=== PATIENT | female | born 1985 | race Caucasian/White ===

== ENCOUNTER 2016-11-16 02:31 | Inpatient (IN) | payer OTHER ==
[2016-11-16] MEDS ORDERED: OXYTOCIN/RINGERS LACTATE 1,000 ML IV PRN (04:10)
[2016-11-16] MEDS ORDERED: TERBUTALINE SULFATE 1 MG/ML VIAL IV PRN (04:10)
[2016-11-16] MEDS ORDERED: EPSOM SALT 454 GM TP PRN (04:10)
[2016-11-16] MEDS ORDERED: AMPICILLIN SODIUM 2 GM in NS 100 ML IV ONE ×2 (04:10→08:30)
[2016-11-16] MEDS ORDERED: LIDOCAINE 1% 30 ML SDV SC PRN (04:10)
[2016-11-16] MEDS ORDERED: MINERAL OIL 60 ML OIL TP PRN (04:10)
[2016-11-16 04:33] LABS: % IMMATURE GRANULYOCYTES 0.4 % (0.0-1.1); ABSOLUTE IMMATURE GRANULOCYTES 0.03 10^3/uL (0.00-0.10); ADD DIFF? NO; ADD MORPH? NO; ADD SCAN? NO; ATYPICAL LYMPHOCYTE FLAG 0 (0-99); FRAGMENT RBC FLAG 0 (0-99); HEMATOCRIT 37.8 % (38.0-47.0); HEMOGLOBIN 13.3 g/dL (12.6-16.3); LEFT SHIFT FLG 0 (0-99); LIPEMIA HEMOLYSIS FLAG 90 (0-99); MEAN CELL HEMOGLOBIN 30.6 pg (27.9-34.1); MEAN CELL HEMOGLOBIN CONCENTR. 35.2 g/dL (32.4-36.7); MEAN CELL VOLUME 86.9 fL (81.5-99.8); MEAN PLATELET VOLUME 12.6 fL (8.7-11.7); PLATELET CLUMPS FLAG 10 (0-99); PLATELET COUNT 145 10^3/uL (150-400); RED BLOOD CELL COUNT 4.35 10^6/uL (4.18-5.33); RED CELL DISTRIBUTION WIDTH 12.8 % (11.5-15.2)
[2016-11-16] MEDS ORDERED: AMMONIA AROMATIC 1 EACH AMP IH ONE (07:26)
[2016-11-16] MEDS ORDERED: LIDOCAINE 1% 30 ML SDV ONE (07:26)
[2016-11-16] MEDS ORDERED: TERBUTALINE SULFATE 1 MG/ML VIAL ONE (07:26)
[2016-11-16] MEDS ORDERED: OXYTOCIN 10 UNIT/ML VIAL ONE (07:27)
[2016-11-16] MEDS ORDERED: MISOPROSTOL 200 MCG TAB ONE (07:27)
[2016-11-16] MEDS ORDERED: DIAZEPAM 10 MG/2 ML SYR IVP PRN (08:14)
[2016-11-16] MEDS ORDERED: PHENYLEPHRINE HCL 100 MCG/ML SYR ONE (09:21)
[2016-11-16] MEDS ORDERED: fentaNYL 2MCG/ML/BUP 0.1% RTU 100 ML BAG EP ONE (09:21)
[2016-11-16] MEDS ORDERED: BETAMETHASONE IM SYRINGE IM ONE (09:30)
[2016-11-16] MEDS: LR 1,000 ML IV PRN ×2 (09:30→12:42)
[2016-11-16] MEDS: AMPICILLIN SODIUM 1 GM in NS 100 ML IV SCH ×2 (12:39→16:52)
[2016-11-16] MEDS ORDERED: LR 500 ML IV SCH (13:30)
[2016-11-16] MEDS ORDERED: LR 500 ML IV PRN (13:51)
[2016-11-16] MEDS ORDERED: OXYTOCIN/RINGERS LACTATE 500 ML IV SCH (14:00)
--- NOTE | 2016-11-16 14:45 | GHP ---
[f rep st] PREOP HISTORY AND PHYSICAL DATE OF ADMISSION: 11/16/2016 SERVICE: Obstetric service HISTORY: Upon admission, the patient is a 31-year-old G1, P0, at 35 weeks and 5 days, with an estima flori due date of 12/16/2016, who presents after spontaneous rupture of membranes at approximately midn ight with clear fluid. The patient presented to labor and delivery a couple hours later due to her p reterm status and began makeda approximately 3:30. The patient's contractions increased in inte nsity approximately every 3-7 minutes apart. The patient's initial exam upon presentation showed the cervix was closed, thick, and high. There was clear fluid noted on exam. The patient was using the Jacuzzi tub for early labor comfort but requested an epidural when she was able to get that. The pa tient was feeling good movement and no bleeding. CARE: The patient has been with [facility] since 7 weeks' gestation. The patient has essentially been uncomplicated through the . She has had occasional joint problems wit h right hip pain for which she saw a chiropractor, as well as rib tenderness on the left. In late , the patient was seen on labor and delivery due to right back and flank pain at which time she had a renal ultrasound that showed moderate bilateral hydronephrosis. The patient was given IV anti biotics followed by oral antibiotics. LABS: Maternal blood type O positive with negative antibody screen. RPR nonreactive. Rube lla nonimmune. Hepatitis B surface antigen negative. HIV negative. TSH was 3. Urinalysis and cult ure were negative. Pap smear normal. Gonorrhea and chlamydia negative. Verified testing was negati ve with MSAFP negative. 1-hour Glucola was normal with hematocrits of 36% to 37%. GBS testing has n ot been performed yet in the . PAST MEDICAL HISTORY: Patient with an abnormal Pap smear showing positive HPV in August 2015. His tory of possible irritable bowel syndrome with no formal evaluation. PAST SURGICAL HISTORY: Negative. ALLERGIES: No known drug allergies. CURRENT MEDICATIONS: vitamins. SOCIAL HISTORY: The patient is , lives with her , Dm. 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 The patient is a nonsmoker. No a lcohol or drug use. PHYSICAL EXAMINATION: GENERAL: The patient is a well-developed, well-nourished white female, in mod erate physical distress with contractions. VITAL SIGNS: The patient is afebrile with normal vital s igns. Please see nursing documentation for full details. heart tone monitoring shows category 1 tracing with a baseline in the 120s with good variability and accelerations. No decelerations not ed. Contractions every 3-4 minutes at this time. PELVIC: The patient had a cervical exam at approx imately 7:30 and was 2 cm dilated, 90% effaced, at +1 station. With that progress of the cervix, the patient did receive an epidural for labor comfort. The patient has had a subsequent exam after the epidural brought her comfort, and she was 3 cm dilated at that point. The fluid is continuing to be clear. EXTREMITIES: Nontender and no edema. ASSESSMENT: Intrauterine at 35 weeks and 5 days. Spontaneous rupture of membranes with un known group B strep status. The patient has now received her second dose of group B strep prophylaxi s with ampicillin. An ultrasound was performed this morning with vertex presentation confirmed. Rub jeanette nonimmune. PLAN: We will add Pitocin if the patient needs it for continuing regular contractions. Expect vagin al delivery. nurse practitioner has been notified. The patient also received a dose of bet amethasone due to early status. /[id number]/MODL
[2016-11-16] MEDS: IBUPROFEN 600 MG TAB PO PRN (19:42)
[2016-11-16] MEDS ORDERED: ACETAMINOPHEN 325 MG TAB PO PRN (19:45)
[2016-11-16] MEDS ORDERED: HYDROCODONE/APAP 5/325 TAB PO PRN (19:45)
[2016-11-16] MEDS ORDERED: MEASLES,MUMPS&RUBELLA VACC/PF 0.5 ML VIAL SC ONE (19:45)
--- NOTE | 2016-11-16 19:49 | OBPROC ---
- Labor and Delivery Onset of Contractions Date: 11/16/16 Onset of Contractions Time: 05:00 Onset of Contractions Type: Spontaneous Rupture of Membranes Date: 11/15/16 Rupture of Membranes Time: 23:56 Rupture of Membranes Type: Spontaneous Amniotic Fluid Color: Clear Dilation Complete Time: 18:30 Delivery Type: Spontaneous Placenta Delivery Date: 11/16/16 Placenta Delivery Time: 19:08 Episiotomy/Laceration: 2nd Degree, Midline, Perineal Repair: 3-0, Vicryl EBL: 500 Complications: None - Medications Labor Augmentation/Induction Meds Used: Pitocin Labor Augmentation/Induction Indication: Other (Specify) (protracted ctxns after KAN) Anesthesia: Epidural - [place] Info Infant A Delivery Date: 11/16/16 Delivery Time: 18:57 Sex of Infant: Male Score (1 Min): 8 Score (5 Min): 9
[2016-11-17] MEDS: IBUPROFEN 600 MG TAB PO PRN ×4 (02:40→22:34)
[2016-11-17] MEDS: AMPICILLIN SODIUM 1 GM in NS 100 ML IV SCH ×3 (03:08→17:57)
[2016-11-17] MEDS: DOCUSATE SODIUM 100 MG CAP PO PRN ×2 (10:07→22:34)
--- NOTE | 2016-11-17 11:41 | OBPROG ---
OBG Progress Note Assessment/Plan: Assessment: 31 y/o PPD #1 s/p after PPROM @ 356/7 weeks. Plan: support, Clarkson and Ibuprofen PRN pain. Routine PPC. 11/17/16 11:41 Subjective: Pt is doing well this am. She has pain in perineum and abdominal muscles partially controlled with Ibuprofen but hasn't tried Clarkson yet. She is ambulating, voiding and having mod lochia. Baby is doing very well latching and stable on room air. Objective: 11/17/16 06:00 Patient ABO/Rh O POSITIVE 11/16/16 04:05 Group B Strep DNA NEGATIVE (NEGATIVE) 11/16/16 03:45 Temp Pulse Resp BP Pulse Ox 36.8 C 63 18 120/75 96 11/17/16 08:30 11/17/16 08:30 11/17/16 08:30 11/17/16 08:30 11/17/16 08:30 Uterine Position/Fundal Height: Umbilicus -2 Uterine Tone: Firm - Physical Exam General Appearance: WD/WN, alert, no apparent distress Neck: non-tender, full range of motion, supple, normal inspection Respiratory: chest non-tender, lungs clear, normal breath sounds Extremities: swelling (1+), Rodriguez's sign (neg) ICD10 Worksheet Patient Problems: Problems Problem Status Diagnosed delivery Acute (spontaneous vaginal delivery) Acute
[2016-11-17] MEDS ORDERED: IRON POLYSAC/IRON HEME 28 MG TAB PO SCH (12:00)
[2016-11-17] MEDS ORDERED: MEASLES,MUMPS&RUBELLA VACC/PF 0.5 ML VIAL SC ONE (14:30)
[2016-11-18] MEDS: IBUPROFEN 600 MG TAB PO PRN ×2 (05:19→11:36)
--- NOTE | 2016-11-18 07:23 | OBPROG ---
OBG Progress Note Assessment/Plan: Assessment: s/p PPD #2 - pt is stable Plan: Continue routine pp care Plan for d/c home later today No Rx given Cont PNV Pelvic rest RTC in 6 weeks for pp visit 11/18/16 07:20 Subjective: Pt seen and examined. Doing well with no complaints. Some cramping, mostly sore from vaginal tear. Moderate lochia. without difficulty. Objective: 11/17/16 06:00 Patient ABO/Rh O POSITIVE 11/16/16 04:05 Group B Strep DNA NEGATIVE (NEGATIVE) 11/16/16 03:45 Temp Pulse Resp BP Pulse Ox 36.7 C 73 16 116/72 96 11/17/16 20:35 11/17/16 20:35 11/17/16 20:35 11/17/16 20:35 11/17/16 20:35 Uterine Position/Fundal Height: Umbilicus -2 Uterine Tone: Firm - Physical Exam General Appearance: WD/WN, alert, no apparent distress Respiratory: lungs clear, normal breath sounds Cardiac/Chest: regular rate, rhythm Abdomen: normal bowel sounds, non-tender, soft, flatus (+) Genitourinary: lochia (moderate) Extremities: non-tender, normal inspection Neuro/Psych: alert, normal mood/affect, oriented x 3 ICD10 Worksheet Patient Problems: Problems Problem Status Diagnosed delivery Acute (spontaneous vaginal delivery) Acute
[2016-11-18 09:06] VITALS: BP 106/67; PULSE 54; RESP 18; TEMP 97.8; O2SAT 95
[2016-11-18] MEDS: DOCUSATE SODIUM 100 MG CAP PO PRN (11:35)
[2016-11-18] MEDS ORDERED: HYDROCORTISONE 0.5% CREAM TP ONE (13:24)
== END 2016-11-18 15:39 | disposition home or self-care (01) | DRG 775 ==
LOC: FLD 02:31 → OBSVTOIN 02:31 → FOB 20:59
PROVIDERS: ADMIT Obstetrics & Gynecology; ATTEND Obstetrics & Gynecology
DX: O42.013 Preterm premature rupture of membranes, onset of labor within 24 hours of rupture, third trimester (principal); Z3A.35 35 weeks gestation of pregnancy; O70.1 Second degree perineal laceration during delivery
CPT/HCPCS: J0290; J0702; J2370; J2590; J3105

== ENCOUNTER → 2016-12-08 | Outpatient (CLI) | payer OTHER | LOC: FLAB 13:03 | PROVIDERS: ATTEND Obstetrics & Gynecology | DX: O92.5 Suppressed lactation (principal); O92.29 Other disorders of breast associated with pregnancy and the puerperium | CPT/HCPCS: G0463 ==

== ENCOUNTER → 2017-06-16 | Day surgery (SDC) | payer OTHER ==
--- NOTE | 2017-06-14 14:17 | GHP ---
HISTORY AND PHYSICAL DATE OF ADMISSION: 06/15/2017 ADMITTING DIAGNOSIS: Missed at 6 weeks and 5 days. HISTORY OF PRESENT ILLNESS: Patient is a 32-year-old, 2, para 1-0-0-1, with unknown last menstrual period, at 6 5/7 weeks who presented to the office last week to confirm dates. She presented for a new OB intake of an unplanned but welcome 06/06. Regular periods resumed in February after discontinuing a 3-month-old. She was using condoms for control, believed to have conceived 04/21/2017, with a last menstrual period end of March. Denies any vomiting, having some nausea. Patient got an ultrasound that day showing an intrauterine at 6 weeks and 5 days with no cardiac activity seen. Patient denied any bleeding, spotting or cramping. We discussed conservative management with a follow-up ultrasound in a week. Patient then presents today for followup ultrasound. Again, there is an IUP with no heart rate at 6 weeks and 5 days, with no growth from previous exam, and a resolving corpus luteal cyst on left ovary. Patient denies any cramping, known spotting or bleeding. Condolences were given. Discussed treatment options with the patient, conservative versus medical ( Cytotec) versus surgical with suction D and C. Patient desires surgery at this time, done as soon as possible. She is O positive. PAST OBSTETRIC HISTORY: In November 2016, she had a vaginal delivery at 35 weeks and 6 days secondary to PPROM, and delivered a viable male weighing 6 pounds 11 ounces. PAST GYNECOLOGIC HISTORY: Menarche at 13. Cycles are every month, every 28 days, for 5-7 days. She had a positive test 05/31/2017. Pt has a h/ o abn pap smears with +HPV, no treatment. Patient denies exposure to any other sexually transmitted diseases. PAST MEDICAL HISTORY: Irritable bowel syndrome. PAST SURGICAL HISTORY: Unremarkable. MEDICATIONS: vitamins, DHA, folic acid. ALLERGIES: No known drug allergies. SOCIAL HISTORY: Patient is . She lives with her and son. 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 Denies alcohol, tobacco, or illicit drug use. LABS: She is O positive. REVIEW OF SYSTEMS: A 10-point review of systems is negative. Pertinent positives noted in HPI. FAMILY HISTORY: Her mother has hypothyroidism. Maternal grandmother with multiple sclerosis. PHYSICAL EXAMINATION: VITAL SIGNS: On admission, vital signs are stable. Patient is afebrile. GENERAL: A well-nourished well-developed female, alert and oriented x3, in no apparent distress. CARDIOVASCULAR: Regular rate and rhythm. LUNGS: Clear to auscultation. ABDOMEN: Soft, nontender, nondistended. PELVIC: On bimanual exam, enlarged uterus to 8 week size. Normal adnexa. Nontender. EXTREMITIES: Normal to inspection without calf tenderness or edema. ASSESSMENT: Patient is a 32 year old gravida1, para1-0-0-1 at 6 5/7 weeks with a missed . PLAN: 1. We discussed the procedure, its limitations, n.p.o. status, and postop recovery. 2. She desires to start control pills as soon as possible. 3. Surgery is scheduled for 12:30 on 06/15/17. Consents are to de done at the bedside. 4. 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 Doxycycline before and after the procedure. 5. SCDs for DVT prophylaxis. /[id number]/MODL MTDD
[~2017-06-16] MED LIST: AMMONIA AROMATIC 1 EACH AMP IH ONE; DEXAMETHASONE 4 MG/ML VIAL ONE; DOXYCYCLINE HYCLATE 100 MG CAP/TAB PO ONE; HEMABATE 250 MCG/1 ML AMP IM ONE; HYDROCODONE/APAP 5/325 TAB PO PRN; KETOROLAC 30 MG/1 ML SDV ONE; METHYLERGONOVINE MAL 0.2 MG/ML INJ ONE; MIDAZOLAM 2 MG/2 ML VIAL IVP ONE; MIDAZOLAM 2 MG/2 ML VIAL ONE; MISOPROSTOL 200 MCG TAB ONE; NALOXONE HCL 0.4 MG/ML INJ IVP PRN; ONDANSETRON 4 MG/2 ML VIAL IVP ONE; ONDANSETRON 4 MG/2 ML VIAL IVP PRN; ONDANSETRON 4 MG/2 ML VIAL ONE; OXYCODONE/APAP 5/325 TAB PO PRN; OXYTOCIN 10 UNIT/ML VIAL ONE; PROPOFOL/EMULSION 500 MG/50 ML BOTTLE IV ONE; SILVER NITRATE APPLICATOR 1 APPL TP ONE; fentaNYL 100 MCG/2 ML INJ IVP PRN; fentaNYL 100 MCG/2 ML INJ ONE
--- NOTE | 2017-06-16 09:42 | PDANEPAE ---
ANE History of Present Illness D and C Missed AB ANE Past Medical History - Cardiovascular History Hx Hypertension: No Hx Arrhythmias: No Hx Chest Pain: No Hx Coronary Artery / Peripheral Vascular Disease: No Hx CHF / Valvular Disease: No - Pulmonary History Hx COPD: No Hx Asthma/Reactive Airway Disease: No Hx Recent Upper Respiratory Infection: No Hx Oxygen in Use at Home: No Hx Sleep Apnea: No - Endocrine History Hx Diabetes: No Hypothyroid: No Hyperthyroid: No ANE Review of Systems Review of Systems: - Exercise capacity METS (RN): 5 METS ANE Patient History - Allergies Allergies/Adverse Reactions: No Known Allergies Allergy (Unverified 09/04/16 11:27) - Anes Hx Anes Hx: no prior problems - Smoking Hx Smoking Status: Never smoked Marijuana use: No - Alcohol Use Alcohol Use: Occasionally - Family Anes Hx Family Anes Hx: none ANE Labs/Vital Signs - Vital Signs Height: 175.26 cm Weight: 80.286 kg ANE Physical Exam - Airway Mallampati Score: Class 1 - Pulmonary Pulmonary: no respiratory distress - Cardiovascular Cardiovascular: regular rate and rhythym - ASA Status ASA Status: II ANE Anesthesia Plan Anesthesia Plan: GA with mask Total IV Anesthesia: Yes
--- NOTE | 2017-06-16 10:55 | POSTANESTH ---
Post Anesthetic Evaluation Cardiovascular Status: Normal, Stable Respiratory Status: Normal, Stable Level of Consciousness/Mental Status: Can Participate in Eval Pain Control: Adequate, Prn Tx Ordered Nausea/Vomiting Control: Adequate, Prn Tx Ordered Complications Possibly Related to Anesthesia: None Noted
--- NOTE | 2017-06-16 19:49 | GOP ---
[f rep st] OPERATIVE REPORT DATE OF OPERATION: 06/16/2017 SURGEON: Lucia Mckeon DO ANESTHESIA: General with sedation. ANESTHESIOLOGIST: Dr. Toussaint. PREOPERATIVE DIAGNOSIS: Missed . POSTOPERATIVE DIAGNOSIS: Missed . PROCEDURE PERFORMED: Suction dilation and curettage. FINDINGS: Mobile midposition uterus with no adnexal masses. SPECIMENS: Products of conception. ESTIMATED BLOOD LOSS: 20 cc. INDICATIONS: Patient is a 32-year-old 2, para 0-1-0-1 who presented for a new OB visit on . The patient had not been trying to get as she has a 7-month-old at home. She was not completely certain of dates, but she had an intrauterine measuring 6 weeks 5 days with no cardiac activity. Ultrasound was repeated a week later which showed no additional growth a nd no cardiac activity. A diagnosis of missed was made. Management options were reviewed w ith the patient. Decision was made to proceed with a suction dilation and curettage. Risks and bene fits were reviewed with the patient and the patient was properly consented. DESCRIPTION OF PROCEDURE: Patient was taken to the operating room with intravenous fluids in place. She had been given oral doxycycline preoperatively. She was then placed on the operating room table in the dorsal supine position, where anesthesia was obtained. She was then repositioned into the do rsal lithotomy position with the Yellofin stirrups and prepped and draped in normal sterile fashion. Exam under anesthesia revealed a mobile, midposition uterus with no adnexal masses. A speculum was then placed in the patient's vagina. An Allis clamp was used to grasp the anterior lip of the cervix . The cervix was then carefully dilated to allow for the introduction of a 9 curved suction curette. A circumferential curettage was performed and a moderate amount of products of conception were note d. A sharp metal curette was then introduced, and a circumferential curettage was gently performed, and no additional products of conception were noted. Instruments were then removed from the patient' s vagina. A transvaginal ultrasound was performed. A thin endometrial stripe was noted. No retaine d products of conception were noted. A small amount of bleeding was noted on the anterior lip of the cervix, which was cauterized with silver nitrate. The patient was then returned to the dorsal supin e position, where she was easily awoken from anesthesia. Sponge count was correct. The patient was transported to recovery room in stable condition. /[id number]/MODL
== END | disposition home or self-care (01) ==
LOC: FOBOP 07:57 → UNDOADMOB 09:43 → FLD 09:43 → UNDODISOB 12:23
PROVIDERS: ATTEND Obstetrics & Gynecology
PROC: 10D17ZZ Extraction of Products of Conception, Retained, Via Natural or Artificial Opening (ICD-10-PCS; principal; 2017-06-16)
DX: O02.1 Missed abortion (principal)
CPT/HCPCS: J1100; J1885; J2210; J2250; J2405; J2704; J3010